=== PATIENT | female | born 1965 | race Caucasian/White ===

== ENCOUNTER → 2017-07-06 | Outpatient (CLI) | payer BC | LOC: MC.RAD 08:33 | DX: Z12.31 Encounter for screening mammogram for malignant neoplasm of breast (principal) ==

== ENCOUNTER 2017-12-25 08:03 | Day surgery (SDC) | payer BC ==
[~2017-12-25] VITALS: Ht 162.6 cm; Wt 72.8 kg
[2017-12-25 08:38] VITALS: BP 147/92; PULSE 78; TEMP 97.7
[2017-12-25] MEDS ORDERED: ESTRACE2 MG PO (08:44)
[2017-12-25] MEDS ORDERED: PRILOSEC 20MG20 MG PO (08:45)
[2017-12-25] MEDS ORDERED: CELEBREX 200MG200 MG PO (08:45)
[2017-12-25] MEDS ORDERED: ADVIL LIQUI-GE200 MG PO (08:46)
[2017-12-25 09:40] VITALS: BP 133/87; PULSE 77; TEMP 97.6
[2017-12-25 09:55] VITALS: BP 116/85; PULSE 77
[2017-12-25 10:10] VITALS: BP 116/85; PULSE 73
== END 2017-12-25 10:25 | disposition home or self-care (01) ==
LOC: SDCO 08:03
DX: Z12.11 Encounter for screening for malignant neoplasm of colon (principal); Z90.710 Acquired absence of both cervix and uterus; Z79.52 Long term (current) use of systemic steroids
CPT/HCPCS: OP; J2250; J2405; J3010; J7030

== ENCOUNTER → 2018-07-28 | Outpatient (CLI) | payer BC ==
[~2018-07-28] MED LIST: ADVIL LIQUI-GE200 MG PO; CELEBREX 200MG200 MG PO; ESTRACE2 MG PO; PRILOSEC 20MG20 MG PO
== END ==
LOC: MC.RAD 07:59
DX: Z12.31 Encounter for screening mammogram for malignant neoplasm of breast (principal); N64.89 Other specified disorders of breast

== ENCOUNTER → 2019-08-26 | Outpatient (CLI) | payer BC | LOC: MC.RAD 08:40 | DX: Z12.31 Encounter for screening mammogram for malignant neoplasm of breast (principal) ==

== ENCOUNTER → 2020-08-30 | Outpatient (CLI) | payer BC | LOC: MC.RAD 08:30 | DX: Z12.31 Encounter for screening mammogram for malignant neoplasm of breast (principal) ==

== ENCOUNTER → 2021-09-06 | Outpatient (CLI) | payer OTHER | LOC: MC.RAD 08:17 | DX: Z12.31 Encounter for screening mammogram for malignant neoplasm of breast (principal) ==

== ENCOUNTER → 2022-09-16 | Outpatient (CLI) | payer OTHER | LOC: MC.RAD 11:18 | DX: R92.0 Mammographic microcalcification found on diagnostic imaging of breast (principal) ==

== ENCOUNTER → 2022-09-17 | Outpatient (CLI) | payer OTHER | LOC: MC.RAD 07:00 | DX: R92.0 Mammographic microcalcification found on diagnostic imaging of breast (principal) ==

== ENCOUNTER → 2023-10-23 | Outpatient (CLI) | payer OTHER | LOC: CANSCHCLI → MC.RAD 09:00 | DX: Z12.31 Encounter for screening mammogram for malignant neoplasm of breast (principal) ==